=== PATIENT | female | born 1940 | race Caucasian/White ===

== ENCOUNTER 2023-01-31 07:55 | Outpatient (CLI) | payer MEDICARE, BC, SELFPAY ==
--- NOTE | 2023-01-31 09:19 | W.ANESCHARGE ---
Anesthesia Charges Start Date/Time Anesthesia Start Date: 01/31/23 Anesthesia Start Time: 08:49 Stop Date/Time Anesthesia Stop Date: 01/31/23 Anesthesia Stop Time: 09:16
--- NOTE | 2023-01-31 09:43 | W.ANESCHARGE ---
Anesthesia Charges Start Date/Time Anesthesia Start Date: 01/31/23 Anesthesia Start Time: 08:49 Stop Date/Time Anesthesia Stop Date: 01/31/23 Anesthesia Stop Time: 09:16 Summary Extremes of Age - Over 70 or under 1: MDA
== END 2023-01-31 07:56 | disposition home or self-care (01) ==
LOC: OP CLINIC 07:57
PROVIDERS: PCP Family Medicine; Visit Provider Internal Medicine Gastroenterology
DX: Z86.010 Personal history of colon polyps (principal); K57.30 Diverticulosis of large intestine without perforation or abscess without bleeding
CPT/HCPCS: 00811; 00812; 45378; 99100; J2704

== ENCOUNTER 2024-12-21 10:15 | Outpatient (RCR) | payer MEDICARE, BC, SELFPAY | END 2025-04-20 23:59 | disposition home or self-care (01) | PROVIDERS: PCP Family Medicine; Visit Provider Family Medicine | DX: H81.13 Benign paroxysmal vertigo, bilateral (principal); Z51.89 Encounter for other specified aftercare | CPT/HCPCS: 97162; 97535 ==

== ENCOUNTER 2025-03-22 09:56 | Outpatient (CLI) | payer MEDICARE, BC, SELFPAY ==
--- NOTE | 2025-03-22 11:50 | P.ANES_ITS ---
Anesthesia Charges Start Date/Time Anesthesia Start Date: 03/22/25 Anesthesia Start Time: 11:20 Stop Date/Time Anesthesia Stop Date: 03/22/25 Anesthesia Stop Time: 11:40 Summary Extremes of Age - Over 70 or under 1: HOSPITAL INSURANCE REPRESENTATIVE Coding CPT Codes CPT Codes: ANES UPR GI NDSC PX NOS - 70019 ([id number]) P3 - PATIENT W/SEVERE SYS DISEASE, QK - SUPERVISOR PHOSPHATIC FERTILIZER 2-4 CNCRNT ANES PROC Additional Codes: Summary - Extremes of Age - Over 70 or under 1: HOSPITAL INSURANCE REPRESENTATIVE ([id number])
--- NOTE | 2025-03-22 11:50 | W.ANESCHARGE ---
Anesthesia Charges Start Date/Time Anesthesia Start Date: 03/22/25 Anesthesia Start Time: 11:20 Stop Date/Time Anesthesia Stop Date: 03/22/25 Anesthesia Stop Time: 11:40 Summary Extremes of Age - Over 70 or under 1: HEALTH CONSULTANT Coding CPT Codes CPT Codes: ANES UPR GI NDSC PX NOS - 91590 ([id number]) P3 - PATIENT W/SEVERE SYS DISEASE, QK - TITLE I MATH TUTOR 2-4 CNCRNT ANES PROC Additional Codes: Summary - Extremes of Age - Over 70 or under 1: HEALTH CONSULTANT ([id number])
--- NOTE | 2025-03-22 11:51 | P.ANES_ITS ---
Anesthesia Charges Start Date/Time Anesthesia Start Date: 03/22/25 Anesthesia Start Time: 11:20 Stop Date/Time Anesthesia Stop Date: 03/22/25 Anesthesia Stop Time: 11:40 Summary Extremes of Age - Over 70 or under 1: MDA Coding CPT Codes CPT Codes: ANES UPR GI NDSC PX NOS - 38843 ([id number]) QK - SURGERY ATTENDANT 2-4 CNCRNT ANES PROC, QX - ASSISTANT MANAGER SVC W/ MD MED DIRECTION, P3 - PATIENT W/SEVERE SYS DISEASE Additional Codes: Summary - Extremes of Age - Over 70 or under 1: MDA ([id number])
== END 2025-03-22 09:57 | disposition home or self-care (01) ==
LOC: OP CLINIC 09:58
PROVIDERS: PCP Family Medicine; Visit Provider Internal Medicine Gastroenterology
DX: R93.3 Abnormal findings on diagnostic imaging of other parts of digestive tract (principal); K22.89 Other specified disease of esophagus; K31.89 Other diseases of stomach and duodenum
CPT/HCPCS: 00731; 43239; 88305; 99100; J2704; J3490